=== PATIENT | female | born 2000 | race Caucasian/White ===

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

== ENCOUNTER 2022-03-31 19:06 | Emergency (ER) | payer OTHER ==
[~2022-03-31] VITALS: Ht 157.5 cm; Wt 83.5 kg
[~2022-03-31 19:06] MED LIST: METR500T1 PO
[2022-03-31 19:26] VITALS: BP 127/72
[2022-03-31 20:51] LABS: BASOPHILS % (AUTO) 0.3 % (0.0-2.0); EOSINOPHILS # (AUTO) 0.1 K/uL (0-0.4); EOSINOPHILS % (AUTO) 0.7 % (0.0-4.0); HEMATOCRIT 40.6 % (36-48); HEMOGLOBIN 13.5 g/dL (12.0-16.0); LYMPHOCYTES # (AUTO) 2.2 K/uL (2.5-16.5); MEAN CORPUSCULAR HEMOGLOBIN 29 pg (27-31); MEAN CORPUSCULAR HGB CONC 33 g/dL (33-37); MEAN CORPUSCULAR VOLUME 85.4 fL (80-94); MONOCYTES # (AUTO) 0.7 K/uL (0.8-1.0); MONOCYTES % (AUTO) 6.3 % (1.7-9.3); NEUTROPHILS # (AUTO) 7.6 K/uL (1.8-7.7); NEUTROPHILS % (AUTO) 71.7 % (42.2-75.2); PLATELET COUNT (AUTO) 277 K/uL (140-450); RED BLOOD CELL COUNT(AUTO) 4.75 MIL/uL (4.20-5.40); RED CELL DISTRIBUTION WIDTH 13.3 % (11.6-13.7); WHITE BLOOD COUNT (AUTO) 10.6 K/uL (4.5-11.0)
[2022-03-31 22:17] LABS: ANION GAP 11.3 (8-16); CARBON DIOXIDE 26.7 mmol/L (21-32); CREATININE 0.7 mg/dL (0.6-1.3)
[2022-03-31 22:40] VITALS: BP 127/72
--- NOTE | 2022-03-31 22:40 | NUR ---
WAS EXAMINED BY DR MCMULLEN IN TRIAGE. NO NURSING INTERVENTIONS WERE REQUIRED. PT DISCHARGED, AMBULATORY IN NAD
== END 2022-03-31 22:40 | disposition home or self-care (01) ==
LOC: MED 19:06
DX: R07.9 Chest pain, unspecified (principal)
CPT/HCPCS: 36415; 71045; 80048; 84484; 85025; 93005; 99285

== ENCOUNTER 2022-07-01 13:21 | Emergency (ER) | payer OTHER ==
[~2022-07-01] VITALS: Ht 154.9 cm; Wt 83.1 kg
[2022-07-01 13:26] VITALS: BP 126/77
--- NOTE | 2022-07-01 13:36 | NUR ---
BIB SELF C/O UPPER LIP SWELLING. ITCHY SKIN ALL OVER BODY ON &OFF X 2 DAYS. PMH: DENIES
[2022-07-01] MEDS ORDERED: DEXAMETHASONE 4 MG TAB PO ONE (14:00)
[2022-07-01] MEDS ORDERED: FAMOTIDINE 20 MG TAB PO ONE (14:00)
--- NOTE | 2022-07-01 14:00 | NUR ---
Howard vila in ED - 07/01/22 at 1726 by [facility] Patient discharged with v/s stable. Written and verbal after care instructions given and explained. Patient verbalized understanding. Ambulatory with steady gait. All questions addressed prior to discharge. Advised to follow up with PMD.
[2022-07-01 15:00] VITALS: BP 103/67
== END 2022-07-01 15:00 | disposition home or self-care (01) ==
LOC: MED 13:21
DX: T78.49XA Other allergy, initial encounter (principal); Z79.2 Long term (current) use of antibiotics; X58.XXXA Exposure to other specified factors, initial encounter
CPT/HCPCS: 99283